=== PATIENT | male | born 1980 | race Caucasian/White ===

== ENCOUNTER 2021-11-05 18:43 | Emergency (ER) | payer OTHER ==
[~2021-11-05] VITALS: Ht 185.4 cm; Wt 97.7 kg
[2021-11-05] VITALS (8 sets, daily range): BP systolic 143–154; BP diastolic 90–112
[~2021-11-05 18:43] MED LIST: CIPRO500 MG OR; NO HOME MEDS
[2021-11-05] MEDS ORDERED: NAPROXEN500 MG PO (20:10)
[2021-11-05] MEDS ORDERED: AMLODIPINE BESYL5 MG PO (20:31)
== END 2021-11-05 20:43 | disposition home or self-care (01) | DRG 87 ==
LOC: ED 18:43
DX: S06.9X1A Unspecified intracranial injury with loss of consciousness of 30 minutes or less, initial encounter (principal); S00.81XA Abrasion of other part of head, initial encounter; S00.31XA Abrasion of nose, initial encounter; I10 Essential (primary) hypertension; V59.50XA Passenger in pick-up truck or van injured in collision with unspecified motor vehicles in traffic accident, initial encounter